=== PATIENT | female | born 1945 | race Caucasian/White ===

== ENCOUNTER 2018-04-25 00:23 | Outpatient (CLI) | payer OTHER, SELFPAY ==
--- NOTE | 2018-04-25 10:18 | DI.MAMMO_ITS ---
SYMPTOM/DIAGNOSIS: SCREENING, RESUME ANNUAL BILATERAL SCREENING MAMMOGRAM: Mammograms were interpreted according to the usual protocol including computer analysis with CAD system, tomosynthesis and C view imaging. Comparison is made with exams from 2013 and 2015 outside exams and 2017 and 2018 from [facility]. The breasts are composed of scattered fibroglandular densities, breast density category B. No suspicious masses or suspicious microcalcifications are seen. There has been no significant change. IMPRESSION: Category 1B, negative mammogram, yearly screening mammography is recommended. [facility] ASSESSMENT OF FINDINGS: Negative. Category 1. Patient will receive a letter notifying them of these results. BI-RADS category B. There are scattered areas of fibroglandular density.
== END 2018-04-25 00:43 ==
PROVIDERS: PCP Nurse Practitioner; Visit Provider Nurse Practitioner
DX: Z12.31 Encounter for screening mammogram for malignant neoplasm of breast (principal)
CPT/HCPCS: 77063; 77067

== ENCOUNTER 2018-06-13 17:33 | Outpatient (REF) | payer OTHER, SELFPAY ==
[2018-06-13 18:58] LABS: HGB 13.6 g/dL (12.0-15.5); Mean Corp. HGB Concentration 33.2 g/dL (32.0-36.0); Mean Corpuscular Hemoglobin 31.5 pg (27.0-33.0); Mean Corpuscular Volume 94.9 fL (80-95); Mean Platelet Volume 10.8 fL (8.0-11.0); Platelet Count 225 x1000/uL (130-400); RBC 4.32 m/cumm (4.00-5.20); RBC Distribution Width 12.3 % (11.7-14.6)
[2018-06-13 19:04] LABS: ALT 27 U/L (12-78); AST 3 U/L (15-37); Albumin 3.9 g/dL (3.4-5.0); Alkaline Phosphatase 59 U/L (46-116); Anion Gap 8.7 mmol/L (3-11); BUN 22 mg/dL (7-18); Bilirubin, Total 0.3 mg/dL (0.2-1.0); CO2 28.3 mmol/L (21.0-32.0); CREATININE 0.74 mg/dL (0.55-1.02); Calcium 9.3 mg/dL (8.5-10.1); Chloride 96 mmol/L (98-107); Glucose 79 mg/dL (70-100); Magnesium 2.3 mg/dL (1.8-2.4); Potassium 4.1 mmol/L (3.5-5.1); Sodium 133 mmol/L (136-145); Total Protein 6.8 g/dL (6.4-8.2); Vitamin B12 773 pg/mL (193-986)
[2018-06-15 05:11] LABS: Vitamin D 25 Total 70.8 ng/ml (30-100)
== END 2018-06-13 17:53 ==
LOC: NCHCN 17:33
PROVIDERS: PCP Nurse Practitioner; Visit Provider Nurse Practitioner
DX: R53.83 Other fatigue (principal); M25.50 Pain in unspecified joint
CPT/HCPCS: 80053; 82306; 85027; 82607; 82746; 83735

== ENCOUNTER 2018-12-05 12:02 | Outpatient (REF) | payer OTHER, SELFPAY ==
[2018-12-05 19:13] LABS: TSH (W/Ref FT4) 1.41 uIU/mL (0.358-3.74)
== END 2018-12-05 12:22 ==
LOC: NCHCN 12:02
PROVIDERS: PCP Nurse Practitioner; Visit Provider Nurse Practitioner
DX: E03.9 Hypothyroidism, unspecified (principal)
CPT/HCPCS: 84443